=== PATIENT | female | born 1945 | race Caucasian/White ===

== ENCOUNTER 2022-03-09 11:59 | Emergency (ER) | payer MEDICARE ==
[2022-03-09 12:55] LABS: TROPONIN I HIGH SENSITIVITY 7.3 pg/mL (<=60.3)
== END 2022-03-09 13:28 | disposition home or self-care (01) ==
LOC: JP.ED 11:59
DX: R07.89 Other chest pain (principal); I10 Essential (primary) hypertension; I48.91 Unspecified atrial fibrillation; J44.9 Chronic obstructive pulmonary disease, unspecified; Z79.01 Long term (current) use of anticoagulants; Z87.891 Personal history of nicotine dependence
CPT/HCPCS: 36415; 80048; 84484; 85027; 93005; 93010; 99283; 99285-25

== ENCOUNTER 2022-07-21 06:00 | Day surgery (SDC) | payer MEDICARE ==
[2022-07-21] MEDS ORDERED: Lactated Ringers 1,000 ML IV SCH (07:00)
[2022-07-21] MEDS ORDERED: fentaNYL 100 MCG/2 ML SDV ONE (07:39)
[2022-07-21] MEDS ORDERED: Propofol 200 MG/20 ML SDV ONE ×2 (07:39→08:02)
[2022-07-21] MEDS ORDERED: Glucagon,Human Recombinant 1 MG Vial ONE (08:11)
== END 2022-07-21 09:18 | disposition home or self-care (01) ==
LOC: JP.SDS 06:00
PROVIDERS: ATTEND Surgery
DX: K57.30 Diverticulosis of large intestine without perforation or abscess without bleeding (principal); I10 Essential (primary) hypertension; I48.91 Unspecified atrial fibrillation
CPT/HCPCS: 45378; J1610; J2704; J3010; J7120

== ENCOUNTER 2022-12-02 20:20 | Emergency (ER) | payer MEDICARE, OTHER ==
[2022-12-02 21:58] LABS: ESTIMATED GFR 75 mL/min (>60); TROPONIN I HIGH SENSITIVITY 9.5 pg/mL (<=60.3)
== END 2022-12-02 23:35 | disposition home or self-care (01) ==
LOC: JP.ED 20:20
DX: I48.0 Paroxysmal atrial fibrillation (principal); R00.1 Bradycardia, unspecified; E07.81 Sick-euthyroid syndrome; J44.9 Chronic obstructive pulmonary disease, unspecified; Q60.0 Renal agenesis, unilateral; I10 Essential (primary) hypertension; Z79.899 Other long term (current) drug therapy; Z79.01 Long term (current) use of anticoagulants; Z86.16 Personal history of COVID-19; Z90.49 Acquired absence of other specified parts of digestive tract; Z90.710 Acquired absence of both cervix and uterus; Z87.891 Personal history of nicotine dependence
CPT/HCPCS: 36415; 80053; 84439; 84443; 84484; 85025; 93005; 93010; 99285